=== PATIENT | male | born 1965 | race Caucasian/White ===

== ENCOUNTER → 2016-06-22 | Outpatient (CLI) | payer BC ==
[~2016-06-22] MED LIST: BIAXIN500 MG PO; CLARITIN10 MG PO; METFORMIN1000 MG PO; SINGULAIR10 MG PO
== END | disposition home or self-care (01) ==
LOC: RAD 14:18
DX: R50.9 Fever, unspecified (principal); R05 Cough; R51 Headache; R07.89 Other chest pain; R06.02 Shortness of breath; Z85.46 Personal history of malignant neoplasm of prostate

== ENCOUNTER → 2016-11-17 | Outpatient (CLI) | payer BC | END | disposition home or self-care (01) | LOC: LAB 09:27 | DX: C61 Malignant neoplasm of prostate (principal) ==

== ENCOUNTER → 2017-03-17 | Outpatient (CLI) | payer BC ==
[2017-03-17 09:39] LABS: HEMATOCRIT 45.8 % (42.0-52.0); HEMOGLOBIN 15.3 g/dl (14.0-18.0); MEAN CELL VOLUME 92.7 fl (80.0-94.0); MEAN CORPUSCULAR HGB CONC 33.4 g/dl (33.0-37.0); MEAN PLATELET VOLUME 11.5 fl (9.6-12.3); RED BLOOD COUNT 4.94 10*6/uL (4.50-5.90); RED CELL DISTRI WIDTH 13.7 % (0-14.5); WHITE BLOOD COUNT 7.8 10*3/uL (4.8-10.8)
[2017-03-17 10:01] LABS: ALBUMIN 3.3 gm/dl (3.1-4.5); ALKALINE PHOSPHATASE 99 U/L (45-117); BUN 15 mg/dl (7-24); CHLORIDE 109 mmol/L (98-107); CHOLESTEROL 134 mg/dL (<200); CREATININE 0.91 mg/dL (0.70-1.30); HDL CHOLESTEROL 28 mg/dl (40-60); LDL CHOLESTEROL 85 mg/dL (9-159); POTASSIUM 4.1 mmol/L (3.5-5.1); SGOT/AST 15 IU/L (3-35); SGPT/ALT 25 U/L (12-78); SODIUM 144 mmol/L (136-145); TOTAL PROTEIN 7.3 gm/dL (6.4-8.2); TRIGLYCERIDES 104 mg/dl (<150); VLDL CHOLESTEROL 21 mg/dL (6-40)
== END | disposition home or self-care (01) ==
LOC: LAB 09:11
PROVIDERS: Family Medicine
DX: I10 Essential (primary) hypertension (principal); E78.00 Pure hypercholesterolemia, unspecified; N52.9 Male erectile dysfunction, unspecified

== ENCOUNTER → 2017-11-17 | Outpatient (CLI) | payer BC | END | disposition home or self-care (01) | LOC: LAB 06:53 | DX: C61 Malignant neoplasm of prostate (principal) ==

== ENCOUNTER → 2018-04-27 | Outpatient (CLI) | payer OTHER ==
[2018-04-27 08:30] LABS: HEMATOCRIT 44.5 % (42.0-52.0); HEMOGLOBIN 14.7 g/dl (14.0-18.0); MEAN CELL VOLUME 92.9 fl (80.0-94.0); MEAN CORPUSCULAR HGB 30.7 pg (27.0-31.0); RED BLOOD COUNT 4.79 10*6/uL (4.50-5.90); RED CELL DISTRI WIDTH 12.8 % (0-14.5); WHITE BLOOD COUNT 7.4 10*3/uL (4.8-10.8)
[2018-04-27 08:58] LABS: ALBUMIN 3.5 gm/dl (3.1-4.5); ALKALINE PHOSPHATASE 79 U/L (45-117); BUN 14 mg/dl (7-24); CHLORIDE 108 mmol/L (98-107); CHOLESTEROL 131 mg/dL (<200); CREATININE 0.89 mg/dL (0.70-1.30); HDL CHOLESTEROL 27 mg/dl (40-60); LDL CHOLESTEROL 71 mg/dL (9-159); POTASSIUM 4.2 mmol/L (3.5-5.1); SGOT/AST 19 IU/L (3-35); SGPT/ALT 24 U/L (12-78); SODIUM 144 mmol/L (136-145); TOTAL PROTEIN 7.1 gm/dL (6.4-8.2); TRIGLYCERIDES 167 mg/dl (<150); VLDL CHOLESTEROL 33 mg/dL (6-40)
== END | disposition home or self-care (01) ==
LOC: LAB 08:10
PROVIDERS: Family Medicine
DX: Z12.5 Encounter for screening for malignant neoplasm of prostate (principal); E78.00 Pure hypercholesterolemia, unspecified; E55.9 Vitamin D deficiency, unspecified

== ENCOUNTER 2018-07-03 11:17 | Inpatient (IN) | payer OTHER ==
--- NOTE | ~2018-07-03 | DS ---
[place], [place] DISCHARGE SUMMARY [id number] #: [id number] ROOM: 403 DOCTOR: LOLA ARCINIEGA MD BIRTHDATE: [birth year] DOS: 07/04/2018 DISCHARGE DIAGNOSES: 1. Chest pains from uncertain etiology, normal echocardiogram and cardiac stress test. 2. Elevation of lipase, which has normalized. No signs of pancreatitis on CT scan of the abdomen. 3. Type 2 diabetes mellitus, diet controlled. 4. Chronic recurrent persistent asthma, moderate. HOSPITAL COURSE: The patient presented to the Emergency Department with 3 days of left-sided chest pain radiating into the left arm, lasting a couple of hours at a time and precordial chest pains. No nausea or diaphoresis. The patient admitted and his cardiac enzymes were checked to be negative. The patient was taken for a cardiac stress test by Dr. Cruz, which was negative. An echocardiogram showed some LVH, but otherwise normal. The patient has been cleared for discharge by Cardiology and is to follow with his PCP, Dr. Angel Santiago next week. He is asymptomatic now. History of type 2 diabetes mellitus, diet controlled. Blood sugar was 121. Chronic recurrent persistent asthma, presently moderate, presently asymptomatic. LABORATORY DATA: Negative cardiac enzymes, stress test and echocardiogram. Lipase level improved to 204, normal from elevated yesterday. No signs of pancreatitis on CT of the abdomen and pelvis. DISCHARGE MANAGEMENT: The patient is taking no home meds. He is to follow up with his PCP, Dr. Angel Santiago, next week. LOLA ARCINIEGA MD CM:DISCHARG [id number] LOLA ARCINIEGA MD 07/05/18 0330 interface
--- NOTE | ~2018-07-03 | PR ---
[place], [place] PROGRESS NOTE NAME: MARLEY CARNEY SR UNIT #: [id number] ROOM: 403 DOCTOR: ARCELIA SANTA MD BIRTHDATE: [birth year] DOS: 07/04/2018 CARDIOLOGY PROGRESS NOTE SUBJECTIVE: The patient was seen in the Cardiology Department just prior to his stress test this morning, 07/04/2018. He is a 53-year-old man without any previous history of coronary disease, who presented to the hospital with a 2-3 day history of dyspnea and left shoulder pain. He notes that the pain in his left shoulder and arm seems to get worse when he is exerting himself and seems to get better with rest. Overnight, he has had no further significant problems. Serial cardiac troponin levels were normal. PHYSICAL EXAMINATION: VITAL SIGNS: Today, his pulse is 61 and regular, blood pressure is 128/64. He is afebrile. NECK: Supple. He has no jugular distention. Carotids are full. LUNGS: Respirations are unlabored. Chest is clear to auscultation and percussion. HEART: Has a regular rhythm with an S4 gallop, but no S3 or murmur. ABDOMEN: Benign. EXTREMITIES: Showed no edema. LABORATORY DATA: Hemoglobin is 15.1, white count 8500. Lipase on admission was 933, but on repeat was 204. Total cholesterol is 169 with an LDL of 114 and an HDL of 26, triglycerides are 143. IMPRESSION: 1. Atypical chest pain, no evidence for acute coronary ischemia. 2. Dyspnea. 3. Elevated lipase, but CT of the abdomen and pelvis are negative for acute pancreatitis. 4. Elevated hemoglobin A1c consistent with insulin resistance. 5. History of hyperlipidemia. The patient is not on a statin. 6. History of asthma. PLAN: Thus far, his cardiac evaluation has been unremarkable. We will proceed with an exercise stress test to further assess his cardiac status and further recommendations will depend upon the results of the stress test. We thank the hospitalist physicians for asking our advice regarding his assessment and care. [place], [place] PROGRESS NOTE NAME: MARLEY CARNEY SR UNIT #: [id number] ROOM: 403 DOCTOR: ARCELIA SANTA MD BIRTHDATE: [birth year] ARCELIA SANTA MD CM:PNDAVID [id number] ARCELIA SANTA MD 07/04/18 1100 interface
--- NOTE | ~2018-07-03 | EKG ---
[place], [place] ELECTROCARDIOGRAM REPORT NAME: MARLEY CARNEY SR UNIT #: [id number] ROOM: 403 DOCTOR: EPIPHANY DRAFT REPORT BIRTHDATE: [birth year] [facility] Test Date: 2018-07-03 Test Time: 17:06:30 Pat Name: MARLEY CARNEY Department: Room: 403 1 Gender: M Clinical Data Management Manager: MAYRA : 1965 Requested By: LOLA ARCINIEGA Order Number: [id number] Reading MD: Gonzales Cruz MD Measurements Intervals [place] Rate: 55 P: 16 [place]: 147 QRS: -17 QRSD: 93 T: 44 QT: 423 QTc: 405 Interpretive Statements Sinus rhythm Abnormal R-wave progression, early transition Inferior infarct, old No change from earlier ECG this date Electronically Signed On 07-04-2018 17:46:10 PST by Gonzales Cruz MD CM:EKGRPT:ELECTROCARDIOGRAM REPORT [id number] LOLA ARCINIEGA MD EPIPHANY DRAFT REPORT LOLA ARCINIEGA MD
--- NOTE | ~2018-07-03 | WRIGHTHP ---
[place], [place] PATIENT HISTORY AND PHYSICAL EXAM NAME: MARLEY CARNEY SR [facility] #: [id number] UNIT #: [id number] ROOM: 403 DOCTOR: LOLA ARCINIEGA MD BIRTHDATE: [birth year] DOS: 07/03/2018 HISTORY OF PRESENT ILLNESS: The patient is a 53-year-old gentleman, patient of Dr. Angel Santiago, with a past medical history of diabetes mellitus, chronic recurrent persistent asthma, moderate, presented to the Emergency Department with recurrent complaints of chest pain for the last 3 days, lasting up to a couple of hours at a time in his precordial area going into his left arm. No nausea or diaphoresis. No dizziness or fainting episodes. No other GI or urinary symptoms. SYSTEMS REVIEW: CARDIOVASCULAR SYSTEM: Recurrent left-sided chest pains. GASTROINTESTINAL: No nausea, vomiting, diarrhea, constipation. RESPIRATORY: No increasing shortness of breath or wheezing. FAMILY HISTORY: Noncontributory. SOCIAL HISTORY: The patient denies smoking cigarettes, alcohol and drug abuse. HOME MEDICATIONS: The patient used to take metformin and Singulair, but apparently not taking it recently. PHYSICAL EXAMINATION: GENERAL: Alert, oriented x 3. VITAL SIGNS: Blood pressure 127/62, heart rate 62 beats per minute, breathing 22 times per minute, temperature 98 degrees Fahrenheit. HEENT AND NECK: Extraocular movements are intact. Sclerae are anicteric. Oral mucosa is moist and clean. No obvious facial weakness. Neck is supple without any lymphadenopathy. No thyromegaly. No JVD. No carotid arterial bruits. LUNGS: Clear to auscultation. No wheezing. No rhonchi. CARDIOVASCULAR SYSTEM: Heart rate is regular in rate and rhythm. S1 and S2 normally audible. No significant murmur or any other abnormal cardiac sounds. ABDOMEN: Soft, nontender. No obvious organomegaly. Bowel sounds are present. No obvious herniation. EXTREMITIES: Without significant cyanosis or edema. Warm to touch. CENTRAL NERVOUS SYSTEM: Alert and oriented x 3. Cranial nerves II-XII are intact. Speech is normal. The patient is able to move all extremities. Normal muscle strength. Deep tendon reflexes are equal on both sides. Plantars were downgoing. IMPRESSION AND PLAN: The patient with left-sided precordial chest pains from uncertain etiology. The patient is to be scheduled for a cardiac stress test in the morning by Dr. Cruz. Cardiac enzymes so far have been negative. History of diabetes mellitus, which is diet controlled. Lipase elevation of 933. I will repeat a level tomorrow. Liver enzymes, bilirubin are normal and CT scan of the abdomen and pelvis did not show any significant pancreatitis or any other abnormality. [place], [place] PATIENT HISTORY AND PHYSICAL EXAM [facility]: [id number] UNIT #: [id number] ROOM: [facility] DOCTOR: LOLA ARCINIEGA MD BIRTHDATE: [birth year] LOLA ARCINIEGA MD CM:HISPHYS:PATIENT HISTORY AND PHYSICAL EXAMINATION 57 40 LOLA ARCINIEGA MD 07/03/182033 interface
--- NOTE | ~2018-07-03 | EKG ---
[place], [place] ELECTROCARDIOGRAM REPORT NAME: MARLEY CARNEY SR UNIT #: [id number] ROOM: 403 DOCTOR: EPIPHANY DRAFT REPORT BIRTHDATE: [birth year] [facility] Test Date: 2018-07-03 Test Time: 20:09:08 Pat Name: MARLEY CARNEY Department: Room: 403 1 Gender: M Swimming Professor: MAYRA : 1965 Requested By: LOLA ARCINIEGA Order Number: [id number] Reading MD: Gonzales Cruz MD Measurements Intervals [place] Rate: 57 P: 14 MO: 149 QRS: -12 QRSD: 101 T: 39 QT: 432 QTc: 421 Interpretive Statements Sinus rhythm Low voltage, extremity and precordial leads Abnormal R-wave progression, early transition No change from earlier ECG this date Electronically Signed On 07-04-2018 17:48:46 PST by Gonzales Cruz MD CM:EKGRPT:ELECTROCARDIOGRAM REPORT [id number] LOLA ARCINIEGA MD EPIPHANY DRAFT REPORT LOLA ARCINIEGA MD
--- NOTE | ~2018-07-03 | EKG ---
[place], [place] ELECTROCARDIOGRAM REPORT NAME: MARLEY CARNEY SR UNIT #: [id number] ROOM: 403 DOCTOR: DANNY DRAFT REPORT BIRTHDATE: [birth year] [facility] Test Date: 2018-07-03 Test Time: 11:27:06 Pat Name: MARLEY CARNEY Department: Room: 403 Gender: M Change Management Administrator: : 1965 Requested By: DIYA MORAN Order Number: [id number] Reading MD: Gonzales Cruz MD Measurements Intervals [place] Rate: 59 P: 13 [place]: 149 QRS: 6 QRSD: 91 T: 35 QT: 425 QTc: 421 Interpretive Statements Sinus rhythm Borderline low voltage, extremity leads Abnormal R-wave progression, early transition Baseline wander in lead(s) II,III,aVF,V4 N Electronically Signed On 07-04-2018 5:52:00 PST by Gonzales Cruz MD CM:EKGRPT:ELECTROCARDIOGRAM REPORT [id number] DIYA CYR DRAFT REPORT DIYA MORAN DO
[2018-07-03 11:18] VITALS: BP 148/77
[2018-07-03 11:45] VITALS: BP 122/76
[2018-07-03 11:45] LABS: BASO % 0.4 % (0.0-1.0); EOS # 0.1 10*3/uL (0.0-0.4); EOS % 1.2 % (1.0-4.0); HEMATOCRIT 45.3 % (42.0-52.0); HEMOGLOBIN 15.1 g/dl (14.0-18.0); LYMPH # 2.4 10*3/uL (1.3-4.4); LYMPH % 27.8 % (27.0-41.0); MEAN CELL VOLUME 92.4 fl (80.0-94.0); MEAN CORPUSCULAR HGB 30.8 pg (27.0-31.0); MEAN CORPUSCULAR HGB CONC 33.3 g/dl (33.0-37.0); MEAN PLATELET VOLUME 11.1 fl (9.6-12.3); MONO # 0.9 10*3/uL (0.1-1.0); MONO % 10.6 % (3.0-9.0); NEUT # 5.1 10*3/uL (2.3-7.9); NEUT % 59.4 % (47.0-73.0); PLATELET COUNT AUTOMATED 223 10*3/uL (130-400); WHITE BLOOD COUNT 8.5 10*3/uL (4.8-10.8)
[2018-07-03 11:53] LABS: ACT PARTIAL THROMBO TIME 21.7 SECONDS (20.8-31.5); INTERNATIONAL NORM RATIO 0.9 (2.0-3.5)
[2018-07-03 12:02] LABS: ALBUMIN 3.5 gm/dl (3.1-4.5); ALKALINE PHOSPHATASE 89 U/L (45-117); BUN 16 mg/dl (7-24); CHLORIDE 107 mmol/L (98-107); CREATININE 0.93 mg/dL (0.70-1.30); LIPASE 933 U/L (73-393); POTASSIUM 4.2 mmol/L (3.5-5.1); SGOT/AST 19 IU/L (3-35); SGPT/ALT 25 U/L (12-78); SODIUM 142 mmol/L (136-145); TOTAL PROTEIN 7.5 gm/dL (6.4-8.2)
[2018-07-03 12:07] LABS: TROPONIN I < 0.015 ng/ml (<0.045)
[2018-07-03 12:30] VITALS: BP 128/78
[2018-07-03 12:44] VITALS: BP 159/87
--- NOTE | 2018-07-03 12:44 | NUR ---
[facility] , under the services of Dr. SUZE ORDAZ,LOLA Escobedo with a diagnosis of CHEST PAIN. Chief complaint is JAW PAIN. Patient arrived via bed from ER. Monitor applied. Initial assessment completed. Vital signs taken and recorded. DR. SUZE ORDAZ,LOLA Escobedo notified of admission to the unit. Orders received. See assessment for past medical history, medications and allergies. Patient and/or family oriented to unit. [facility] visitation policy reviewed. Clothing/patient valuable form completed. FERNANDO DELUCA
--- NOTE | 2018-07-03 12:56 | NUR ---
SPOKE TO DR ARCINIEGA, NEW ORDERS RECEIVED.
--- NOTE | 2018-07-03 12:59 | NUR ---
OFFICE STAFF WAS NOTIFIED OF DR. SANTA CONSULT. RESPONSE OF NOTIFICATION WAS OK THANK YOU. BENY MCLEOD
--- NOTE | 2018-07-03 15:28 | NUR ---
PT ATE LUNCH. IN BED WITH AT BEDSIDE. DENIES NEEDS.
[2018-07-03 16:00] VITALS: BP 127/62
[2018-07-03 20:00] VITALS: BP 121/71
[2018-07-04] VITALS: BP 108/65
[2018-07-04 08:00] VITALS: BP 128/64
[2018-07-04 08:20] LABS: CHOLESTEROL 169 mg/dL (<200)
[2018-07-04 08:24] LABS: HDL CHOLESTEROL 26 mg/dl (40-60); LDL CHOLESTEROL 114 mg/dL (9-159); TRIGLYCERIDES 143 mg/dl (<150); VLDL CHOLESTEROL 29 mg/dL (6-40)
--- NOTE | 2018-07-04 08:30 | NUR ---
Patient resting quietly with no c/o discomfort. Respirations easy and regular. Vital signs stable. No overt distress. DELONTE PEACOCK R
--- NOTE | 2018-07-04 08:51 | NUR ---
INFORMED CONSENT OBTAINED FOR AN EXERCISE STRESS TEST WITH DR. SANTA. RESTING EKG SINUS CARLA WITH A SUPINE HR OF 54 AND BP OF 122/82. AND A HR OF 56 AND BP OF 122/78 IN STANDING POSITION. PT COMPLETED 10:30 OF A MARIA ELENA PROTOCOL WITH COMPLETION OF 1:30 OF STAGE IV AT 4.2 MPH AND 16% GRADE. REACHED A PEAK HT RT OF 151 WHICH IS 91% OF PREDICTED MAX WITH A PEAK BP OF 194/68. TEST TERMINATED DUE TO FATIGUE. HAD NO CHEST PAIN. HAS A HIGH EXERCISE TOLERANCE. LAST RECOVERY HT RT OF 95, WITH A BP OF 150/80. AWAITING SCANNING IN STABLE CONDITION.
--- NOTE | 2018-07-04 09:00 | NUR ---
[employer] System Operator in to talk to patient. Patient states lives at home with his . There are 13 steps in the home. Physician: Dr. Angel Santiago Pharmacy: [facility] Home health services: none Patient's level of ADLs: INDEPENDENT Patient has working utilities: yes DME: none Follow-up physician's appointment after d/c: he prefers to make his own follow up appt after discharge Does patient want to access PORTAL?: no Discharge plan discussed with patient and his who is at the bedside. He lives at home with his . He is independent in his ADLs and ambulation. Discussed home health care services and he denies any home needs at this time. When medically stable he will be discharged to home. MYRON GARCIA
[2018-07-04 12:00] VITALS: BP 115/74
[2018-07-04 16:00] VITALS: BP 130/74
--- NOTE | 2018-07-04 16:00 | NUR ---
Patient resting quietly with no c/o discomfort. Respirations easy and regular. Vital signs stable. No overt distress. DELONTE PEACOCK R
--- NOTE | 2018-07-04 18:05 | NUR ---
Discharge instructions reviewed with patient/family. Patient receptive and verbalizes understanding. Follow-up care arranged. Written instructions given to patient/family. DELONTE PEACOCK
== END 2018-07-04 18:05 | disposition home or self-care (01) | DRG 313 ==
LOC: ED 11:17 → EDHOLD 12:16 → 4E 12:16
PROVIDERS: Family Medicine; Nurse Practitioner Family; ADMIT Internal Medicine
DX: R07.89 Other chest pain (principal); E11.9 Type 2 diabetes mellitus without complications; J45.30 Mild persistent asthma, uncomplicated; E78.5 Hyperlipidemia, unspecified; Z87.81 Personal history of (healed) traumatic fracture; Z80.1 Family history of malignant neoplasm of trachea, bronchus and lung; Z90.49 Acquired absence of other specified parts of digestive tract; Z87.891 Personal history of nicotine dependence; Z79.84 Long term (current) use of oral hypoglycemic drugs; Z85.46 Personal history of malignant neoplasm of prostate

== ENCOUNTER → 2018-11-22 | Outpatient (CLI) | payer OTHER | END | disposition home or self-care (01) | LOC: LAB 13:16 | DX: C61 Malignant neoplasm of prostate (principal) ==

== ENCOUNTER → 2019-05-25 | Outpatient (CLI) | payer OTHER | END | disposition home or self-care (01) | LOC: LAB 07:46 | DX: C61 Malignant neoplasm of prostate (principal) ==

== ENCOUNTER → 2019-07-20 | Outpatient (CLI) | payer OTHER ==
[2019-07-20 09:15] LABS: HEMATOCRIT 45.1 % (42.0-52.0); HEMOGLOBIN 14.9 g/dl (14.0-18.0); MEAN CELL VOLUME 93.6 fl (80.0-94.0); MEAN CORPUSCULAR HGB 30.9 pg (27.0-31.0); MEAN PLATELET VOLUME 11.3 fl (9.6-12.3); RED BLOOD COUNT 4.82 10*6/uL (4.50-5.90); WHITE BLOOD COUNT 6.5 10*3/uL (4.8-10.8)
[2019-07-20 09:45] LABS: ALBUMIN 3.5 gm/dl (3.1-4.5); ALKALINE PHOSPHATASE 86 U/L (45-117); BUN 14 mg/dl (7-24); CHLORIDE 112 mmol/L (98-107); CHOLESTEROL 139 mg/dL (<200); CREATININE 1.04 mg/dL (0.70-1.30); HDL CHOLESTEROL 26 mg/dl (40-60); LDL CHOLESTEROL 83 mg/dL (9-159); POTASSIUM 4.2 mmol/L (3.5-5.1); SGOT/AST 20 IU/L (3-35); SGPT/ALT 34 U/L (12-78); SODIUM 145 mmol/L (136-145); TOTAL PROTEIN 7.2 gm/dL (6.4-8.2); TRIGLYCERIDES 148 mg/dl (<150); VLDL CHOLESTEROL 30 mg/dL (6-40)
== END ==
LOC: LAB 08:46
PROVIDERS: Family Medicine
DX: R05 Cough (principal); R53.83 Other fatigue; E55.9 Vitamin D deficiency, unspecified; E78.00 Pure hypercholesterolemia, unspecified

== ENCOUNTER → 2019-07-30 | Outpatient (CLI) | payer OTHER | END | disposition home or self-care (01) | LOC: NM 09:12 | DX: M54.5 Low back pain (principal); M25.551 Pain in right hip; M25.552 Pain in left hip; G89.29 Other chronic pain ==

== ENCOUNTER → 2019-12-09 | Outpatient (CLI) | payer BC | END | disposition home or self-care (01) | LOC: LAB 13:07 | DX: C61 Malignant neoplasm of prostate (principal) ==

== ENCOUNTER → 2020-05-22 | Outpatient (CLI) | payer BC | END | disposition home or self-care (01) | LOC: LAB 10:41 | PROVIDERS: ATTEND Physician Assistant Medical | DX: C61 Malignant neoplasm of prostate (principal) ==

== ENCOUNTER → 2020-12-08 | Outpatient (CLI) | payer BC | END | disposition home or self-care (01) | LOC: LAB 07:50 | PROVIDERS: ATTEND Physician Assistant Medical | DX: C61 Malignant neoplasm of prostate (principal) ==

== ENCOUNTER → 2021-12-24 | Outpatient (CLI) | payer OTHER ==
[2021-12-24 08:53] LABS: HEMATOCRIT 44.7 % (42.0-52.0); MEAN CELL VOLUME 90.1 fl (80.0-94.0); MEAN CORPUSCULAR HGB 30.6 pg (27.0-31.0); RED BLOOD COUNT 4.96 10*6/uL (4.50-5.90); RED CELL DISTRI WIDTH 12.9 % (0-14.5); WHITE BLOOD COUNT 9.4 10*3/uL (4.8-10.8)
[2021-12-24 09:33] LABS: ALKALINE PHOSPHATASE 113 U/L (45-117); BUN 13 mg/dl (7-24); CHLORIDE 108 mmol/L (98-107); CHOLESTEROL 139 mg/dL (<200); CREATININE 0.93 mg/dL (0.70-1.30); LDL CHOLESTEROL 64 mg/dL (9-159); POTASSIUM 4.1 mmol/L (3.5-5.1); SGOT/AST 15 IU/L (3-35); SGPT/ALT 32 U/L (12-78); SODIUM 142 mmol/L (136-145); TOTAL PROTEIN 7.3 gm/dL (6.4-8.2); TRIGLYCERIDES 250 mg/dl (<150)
[2021-12-24 09:47] LABS: VITAMIN D, 25-HYDROXY 27.6 ng/mL (30-100)
== END | disposition home or self-care (01) ==
LOC: LAB 08:40
PROVIDERS: ATTEND Family Medicine
DX: Z00.00 Encounter for general adult medical examination without abnormal findings (principal); E55.9 Vitamin D deficiency, unspecified; J31.0 Chronic rhinitis

== ENCOUNTER → 2022-01-14 | Outpatient (CLI) | payer OTHER | END | disposition home or self-care (01) | LOC: LAB 09:54 | PROVIDERS: ATTEND Family Medicine | DX: E11.9 Type 2 diabetes mellitus without complications (principal); R05.3 Chronic cough ==

== ENCOUNTER → 2022-01-25 | Outpatient (CLI) | payer OTHER ==
[2022-01-25 15:42] LABS: CREATININE 0.95 mg/dL (0.70-1.30)
== END | disposition home or self-care (01) ==
LOC: LAB 15:02
PROVIDERS: ATTEND Surgery
DX: Z01.818 Encounter for other preprocedural examination (principal); D17.0 Benign lipomatous neoplasm of skin and subcutaneous tissue of head, face and neck

== ENCOUNTER → 2022-02-03 | Outpatient (CLI) | payer OTHER | END | disposition home or self-care (01) | LOC: CT 01-27 14:00 | PROVIDERS: ATTEND Surgery | DX: D17.0 Benign lipomatous neoplasm of skin and subcutaneous tissue of head, face and neck (principal); M47.812 Spondylosis without myelopathy or radiculopathy, cervical region ==

== ENCOUNTER → 2022-04-03 | Day surgery (SDC) | payer OTHER ==
[~2022-04-03] VITALS: Ht 177.8 cm; Wt 97.5 kg
[~2022-04-03] MED LIST changes: +JARDIANCE10 MG PO; +METFORMIN HYDR500 MG PO; +PERCOCET 5-3251 EACH PO
[2022-04-03 09:02] VITALS: BP 121/73
[2022-04-03 10:05] VITALS: BP 121/80
[2022-04-03 10:20] VITALS: BP 108/64
[2022-04-03 10:35] VITALS: BP 118/62
== END | disposition home or self-care (01) ==
LOC: SDC 03-30 14:00
PROVIDERS: ATTEND Surgery
DX: D17.0 Benign lipomatous neoplasm of skin and subcutaneous tissue of head, face and neck (principal); J45.909 Unspecified asthma, uncomplicated; Z85.46 Personal history of malignant neoplasm of prostate; E11.9 Type 2 diabetes mellitus without complications

== ENCOUNTER → 2022-05-13 | Outpatient (CLI) | payer OTHER ==
[2022-05-13 10:13] LABS: ALKALINE PHOSPHATASE 77 U/L (46-116); BUN 14 mg/dl (9-23); CHLORIDE 110 mmol/L (98-107); CHOLESTEROL 118 mg/dL (<200); CPK 133 U/L (34-171); CREATININE 0.83 mg/dL (0.70-1.30); LDL CHOLESTEROL 78 mg/dL (9-159); POTASSIUM 3.9 mmol/L (3.4-5.1); SGPT/ALT 19 U/L (10-49); SODIUM 143 mmol/L (136-145); TOTAL PROTEIN 6.6 gm/dL (6.0-8.0); TRIGLYCERIDES 68 mg/dl (<150)
== END | disposition home or self-care (01) ==
LOC: LAB 09:18
PROVIDERS: ATTEND Family Medicine
DX: E11.9 Type 2 diabetes mellitus without complications (principal); E78.00 Pure hypercholesterolemia, unspecified

== ENCOUNTER → 2022-09-23 | Outpatient (CLI) | payer OTHER ==
[2022-09-23 09:46] LABS: HEMATOCRIT 49.9 % (42.0-52.0); MEAN CELL VOLUME 93.3 fl (80.0-94.0); MEAN CORPUSCULAR HGB CONC 33.3 g/dl (33.0-37.0); MEAN PLATELET VOLUME 11.2 fl (9.6-12.3); RED BLOOD COUNT 5.35 10*6/uL (4.50-5.90); RED CELL DISTRI WIDTH 13.2 % (0-14.5); WHITE BLOOD COUNT 6.6 10*3/uL (4.8-10.8)
[2022-09-23 10:12] LABS: ALKALINE PHOSPHATASE 95 U/L (46-116); BUN 13 mg/dl (9-23); CHLORIDE 105 mmol/L (98-107); CHOLESTEROL 145 mg/dL (<200); LDL CHOLESTEROL 96 mg/dL (9-159); POTASSIUM 4.2 mmol/L (3.4-5.1); SGPT/ALT 13 U/L (10-49); TOTAL PROTEIN 7.5 gm/dL (6.0-8.0); TRIGLYCERIDES 100 mg/dl (<150)
== END | disposition home or self-care (01) ==
LOC: LAB 09:27
PROVIDERS: ATTEND Family Medicine
DX: I10 Essential (primary) hypertension (principal); E11.9 Type 2 diabetes mellitus without complications; E55.9 Vitamin D deficiency, unspecified

== ENCOUNTER → 2023-08-23 | Outpatient (CLI) | payer OTHER ==
[~2023-08-23] MED LIST changes: +IOHEXOL 300 MG/ML 100 ML VIAL IV ONE
== END | disposition home or self-care (01) ==
LOC: LAB 15:34 → CT 16:00
PROVIDERS: ATTEND Family Medicine
DX: Z01.818 Encounter for other preprocedural examination (principal); R91.1 Solitary pulmonary nodule; I25.10 Atherosclerotic heart disease of native coronary artery without angina pectoris; Z90.49 Acquired absence of other specified parts of digestive tract

== ENCOUNTER → 2024-03-01 | Outpatient (CLI) | payer OTHER ==
[~2024-03-01] MED LIST changes: -IOHEXOL 300 MG/ML 100 ML VIAL IV ONE
[2024-03-01 10:27] LABS: HEMATOCRIT 44.3 % (42.0-52.0); MEAN CELL VOLUME 92.7 fl (80.0-94.0); MEAN CORPUSCULAR HGB CONC 33.4 g/dl (33.0-37.0); MEAN PLATELET VOLUME 11.5 fl (9.6-12.3); RED BLOOD COUNT 4.78 10*6/uL (4.50-5.90); RED CELL DISTRI WIDTH 13.2 % (0-14.5); WHITE BLOOD COUNT 7.4 10*3/uL (4.8-10.8)
[2024-03-01 10:51] LABS: ALKALINE PHOSPHATASE 74 U/L (46-116); BUN 11 mg/dl (9-23); CHLORIDE 107 mmol/L (98-107); CHOLESTEROL 129 mg/dL (<200); CPK 207 U/L (34-171); LDL CHOLESTEROL 82 mg/dL (9-159); POTASSIUM 4.6 mmol/L (3.4-5.1); SGPT/ALT 13 U/L (5-49); TOTAL PROTEIN 7.1 gm/dL (6.0-8.0); TRIGLYCERIDES 69 mg/dl (<150)
== END | disposition home or self-care (01) ==
LOC: LAB 10:05
PROVIDERS: ATTEND Family Medicine
DX: I10 Essential (primary) hypertension (principal); E55.9 Vitamin D deficiency, unspecified; E78.00 Pure hypercholesterolemia, unspecified; E11.9 Type 2 diabetes mellitus without complications

== ENCOUNTER → 2024-09-27 | Outpatient (CLI) | payer OTHER ==
[2024-09-27 08:32] LABS: HEMATOCRIT 43.1 % (42.0-52.0); MEAN CELL VOLUME 92.7 fl (80.0-94.0); MEAN CORPUSCULAR HGB 30.8 pg (27.0-31.0); MEAN CORPUSCULAR HGB CONC 33.2 g/dl (33.0-37.0); MEAN PLATELET VOLUME 10.8 fl (9.6-12.3); RED BLOOD COUNT 4.65 10*6/uL (4.50-5.90); WHITE BLOOD COUNT 6.4 10*3/uL (4.8-10.8)
[2024-09-27 09:02] LABS: ALKALINE PHOSPHATASE 77 U/L (46-116); BUN 15 mg/dl (9-23); CHLORIDE 107 mmol/L (98-107); CHOLESTEROL 108 mg/dL (<200); CPK 89 U/L (34-171); LDL CHOLESTEROL 64 mg/dL (9-159); POTASSIUM 4.1 mmol/L (3.4-5.1); SGPT/ALT 12 U/L (5-49); TOTAL PROTEIN 6.9 gm/dL (6.0-8.0); TRIGLYCERIDES 90 mg/dl (<150)
[2024-09-27 09:24] LABS: VITAMIN D, 25-HYDROXY 58.1 ng/mL (30-100)
== END | disposition home or self-care (01) ==
LOC: LAB 08:13
PROVIDERS: ATTEND Family Medicine
DX: I10 Essential (primary) hypertension (principal); E11.9 Type 2 diabetes mellitus without complications; E78.00 Pure hypercholesterolemia, unspecified; E55.9 Vitamin D deficiency, unspecified; R53.83 Other fatigue; C61 Malignant neoplasm of prostate

== ENCOUNTER → 2025-01-31 | Outpatient (CLI) | payer OTHER ==
[2025-01-31 09:01] LABS: BUN 10 mg/dl (9-23); CPK 106 U/L (34-171); LDL CHOLESTEROL 65 mg/dL (9-159); SGPT/ALT 12 U/L (5-49)
== END | disposition home or self-care (01) ==
LOC: LAB 08:20
PROVIDERS: ATTEND Family Medicine
DX: I10 Essential (primary) hypertension (principal); E11.9 Type 2 diabetes mellitus without complications; E78.00 Pure hypercholesterolemia, unspecified

== ENCOUNTER → 2025-06-02 | Outpatient (CLI) | payer OTHER ==
[2025-06-02 08:09] LABS: MEAN CELL VOLUME 92.8 fl (80.0-94.0); MEAN CORPUSCULAR HGB 30.6 pg (27.0-31.0); MEAN PLATELET VOLUME 11.2 fl (9.6-12.3); NUCLEATED RED BLOOD CELL 0.0 % (0.0-0.0); NUCLEATED RED BLOOD CELL 0.0 10*3/uL (0.0-0.0); PLATELET COUNT AUTOMATED 231.0 10*3/uL (130-400); RED CELL DISTRI WIDTH 12.9 % (0-14.5)
[2025-06-02 08:50] LABS: BUN 11 mg/dl (9-23); CPK 67 U/L (34-171); LDL CHOLESTEROL 95 mg/dL (9-159); SGPT/ALT 18 U/L (5-49)
== END | disposition home or self-care (01) ==
LOC: LAB 07:29
PROVIDERS: ATTEND Family Medicine
DX: I10 Essential (primary) hypertension (principal); E11.9 Type 2 diabetes mellitus without complications; E78.00 Pure hypercholesterolemia, unspecified